=== PATIENT | male | born 1975 | race Caucasian/White ===

== ENCOUNTER 2016-08-18 14:32 | Emergency (ER) | payer MEDICARE, MEDICAID ==
[~2016-08-18] VITALS: Ht 170.2 cm; Wt 166.4 kg
[~2016-08-18 14:32] MED LIST: ADVA250A INH; BACT800T5 PO; DEPA500T3 PO; DIPH50TA PO; LEXA20TA PO; LORA10TA7 PO; OMEP20TA39 PO; PRIN10TA PO; SIMV20 PO; SPIRCAP INH; TRAZ100 PO; VENTAER INH
[2016-08-18 14:34] VITALS: BP 132/74; PULSE 112; RESP 24; TEMP 97.7; O2SAT 90
--- NOTE | 2016-08-18 16:09 | RADRPT ---
EXAM DATE/TIME: 08/18/2016 15:39 [place] COMPARISON: No previous studies available for comparison. INDICATIONS : Short of breath today, smoker MEDICAL HISTORY : Chronic obstructive pulmonary disease. SURGICAL HISTORY : None. ENCOUNTER: Initial ACUITY: 1 day PAIN SCORE: 0/10 LOCATION: Bilateral chest FINDINGS: PA and lateral views of the chest demonstrate the lungs to be symmetrically aerated without evidence of mass, infiltrate or effusion. The cardiomediastinal contours are unremarkable. Osseous structure s are intact. CONCLUSION: No acute disease. Yassine Laguna MD FACR on August 18, 2016 at 16:06 Board Certified Radiologist. This report was verified electronically.
[2016-08-18 16:39] LABS: AUTOMATED NEUTROPHIL # 9.6 TH/MM3 (1.8-7.7); BASOPHIL # 0.1 TH/MM3 (0-0.2); BASOPHIL % 0.5 % (0.0-2.0); EOSINOPHIL # 0.1 TH/MM3 (0-0.4); EOSINOPHIL % 0.5 % (0.0-4.0); HEMATOCRIT 44.3 % (39.0-51.0); LYMPH % 13.6 % (9.0-44.0); LYMPHOCYTE # 1.7 TH/MM3 (1.0-4.8); MEAN CELL VOLUME 71.3 FL (80.0-100.0); MEAN CORPUSCULAR HEMOGLOBIN 22.7 PG (27.0-34.0); MEAN CORPUSCULAR HGB CONC 31.9 % (32.0-36.0); MONO % 8.1 % (0.0-8.0); NEUT % 77.3 % (16.0-70.0); PLATELET COUNT 172 TH/MM3 (150-450); RED BLOOD COUNT 6.21 MIL/MM3 (4.50-5.90); RED CELL DISTRIBUTION WIDTH 19.4 % (11.6-17.2); WHITE BLOOD COUNT 12.4 TH/MM3 (4.0-11.0)
[2016-08-18 16:40] LABS: HEMO FLAGS AUTO DIFF
[2016-08-18 16:46] LABS: BICARBONATE 31.6 MEQ/L (21.0-32.0)
--- NOTE | 2016-08-18 17:07 | PD ---
HPI Chief Complaint: Respiratory Distress Time Seen by Provider: 17:07 Travel History International Travel<30 days: No Contact w/Intl Traveler<30days: No Traveled to known affect area: No History of Present Illness HPI 41-year-old male with a history of asthma, COPD, bipolar disorder, hypertension , hyperlipidemia presents to the emergency department for evaluation of shortness of breath. Patient states that for the past 3 days he's had increased wheezing and shortness of breath. States that she has also had a dry nonproductive cough. States that he is uses inhalers without improvement of symptoms. He denies any chest pain, lightheadedness, dizziness, nausea, vomiting, abdominal pain, swelling of the extremities. Patient states he feels as though he is having an exacerbation of his asthma. He does continue to smoke cigarettes. No recent travel or sick contacts. No other complaints. PFSH Past Medical History Arthritis: No Asthma: Yes Autoimmune Disease: No Blood Disorders: No Bipolar Disorder: Yes Depression: Yes Heart Rhythm Problems: No Cardiovascular Problems: No High Cholesterol: Yes Chest Pain: No Congestive Heart Failure: No COPD: Yes Cerebrovascular Accident: No Diabetes: No Diminished Hearing: No Endocrine: No Gastrointestinal Disorders: No GERD: No Glaucoma: No Genitourinary: Yes Headaches: No Hepatitis: No Hiatal Hernia: No Hypertension: Yes Immune Disorder: No Kidney Stones: Yes Musculoskeletal: No Neurologic: No Psychiatric: Yes (BIPOLAR) Reproductive: No Respiratory: Yes (SLEEP APNEA USING CPAP AT NIGHT) Migraines: No Myocardial Infarction: No Renal Failure: No Seizures: No Sickle Cell Disease: No Sleep Apnea: No Thyroid Disease: No Ulcer: Yes (GI) Past Surgical History Abdominal Surgery: No Appendectomy: No Cardiac Surgery: No Cholecystectomy: Yes (2010) Ear Surgery: No Endocrine Surgery: No Eye Surgery: No Genitourinary Surgery: No Gynecologic Surgery: No Neurologic Surgery: No Oral Surgery: No Thoracic Surgery: No Other Surgery: Yes (LEFT HAND TENDON REPAIR) Social History Alcohol Use: No Tobacco Use: Yes (1/2 PACK PER DAY) Substance Use: No Allergies-Medications (Allergen,Severity, Reaction): Coded Allergies: No Known Allergies (Verified , 04/26/16) Reported Meds & Prescriptions Reported Meds & Active Scripts Active Zithromax Z-Andrews (Azithromycin) 250 Mg Dspk 250 Mg PO DIRECTED 500 MG (2 tabs) day 1, then 1 tab days 2-5. Prednisone 20 Mg Tab 20 Mg PO BID 5 Days Bactrim Ds1 Tab 1 Tab Tab 1 Tab PO BID Diphenhydramine Hcl (Diphenhydramine HCl) 50 Mg Cap 50 Mg PO Q4-6H PRN Reported Hm Omeprazole (Omeprazole) 20 Mg Tab 20 Mg PO DAILY Spiriva Handihaler (Tiotropium [place]) 18 Mcg Cap 1 Dose INH DAILY DO NOT SWALLOW CAPSULES Trazodone HCl 100 Mg Tab 100 Mg PO HS Advair Disku1 250 Mcg/50 Mcg Inhp 1 Puff INH BID [id number] 18 Gm Aero 2 Puff INH Q6HPRN Zocor (Simvastatin) 20 Mg Tab 20 Mg PO HS Prinivil (Lisinopril) 10 Mg Tab 20 Mg PO DAILY Lexapro (Escitalopram Oxalate) 20 Mg Tab 20 Mg PO DAILY Claritin (Loratadine) 10 Mg Tab 10 Mg PO DAILY Depakote ER 500 mg (Divalproex Sodium) 500 Mg Carole 500 Mg PO BID Review of Systems Except as stated in HPI: all other systems reviewed are Neg Physical Exam Narrative GENERAL: Obese male patient in no acute distress who is nontoxic appearing. SKIN: Warm and dry. HEAD: Normocephalic and atraumatic. EYES: No injection, drainage, or hyphema noted. PERRLA. EOMI. ENT: No nasal drainage noted. Oropharynx is clear. NECK: Supple and the trachea is midline. CARDIOVASCULAR: Regular rate and rhythm. RESPIRATORY: Mild wheezing throughout all lung cruz. No accessory muscle use , rhonchi, or crackles. Patient speaking in full sentences without difficulty. GASTROINTESTINAL: Abdomen is soft, non-tender, and nondistended. MUSCULOSKELETAL: No obvious deformities, swelling, cyanosis, or ecchymosis is present throughout the upper and lower extremities. Patient has full range of motion without any signs of neurovascular compromise. NEUROLOGICAL: Awake, alert, and oriented. Normal speech and gait. Cranial nerves are grossly intact. Data Data Last Documented VS Vital Signs Date Time Temp Pulse Resp B/P Pulse Ox O2 Delivery O2 Flow Rate FiO2 08/18/16 17:56 102 20 130/74 95 08/18/16 14:34 97.7 Room Air Orders Complete Blood Count With Diff (08/18/16 14:46) Basic Metabolic Panel (Bmp) (08/18/16 14:46) Chest, Pa & Lat (08/18/16 14:46) Electrocardiogram (08/18/16 14:46) Methylprednisolone So Succ Inj (Solumedr (08/18/16 17:15) Albuterol-Ipratropium Neb (Duoneb Neb) (08/18/16 17:15) Labs Laboratory Tests Test 08/18/16 16:00 White Blood Count 12.4 TH/MM3 Red Blood Count 6.21 MIL/MM3 Hemoglobin 14.1 GM/DL Hematocrit 44.3 % Mean Corpuscular Volume 71.3 FL Mean Corpuscular Hemoglobin 22.7 PG Mean Corpuscular Hemoglobin 31.9 % Concent Red Cell Distribution Width 19.4 % Platelet Count 172 TH/MM3 Mean Platelet Volume 8.8 FL Neutrophils (%) (Auto) 77.3 % Lymphocytes (%) (Auto) 13.6 % Monocytes (%) (Auto) 8.1 % Eosinophils (%) (Auto) 0.5 % Basophils (%) (Auto) 0.5 % Neutrophils # (Auto) 9.6 TH/MM3 Lymphocytes # (Auto) 1.7 TH/MM3 Monocytes # (Auto) 1.0 TH/MM3 Eosinophils # (Auto) 0.1 TH/MM3 Basophils # (Auto) 0.1 TH/MM3 CBC Comment AUTO DIFF Differential Comment AUTO DIFF CONFIRMED Platelet Estimate NORMAL Platelet Morphology Comment NORMAL Sodium Level 145 MEQ/L Potassium Level 4.0 MEQ/L Chloride Level 107 MEQ/L Carbon Dioxide Level 31.6 MEQ/L Anion Gap 6 MEQ/L Blood Urea Nitrogen 12 MG/DL Creatinine 1.00 MG/DL Estimat Glomerular Filtration 82 ML/MIN Rate Random Glucose 67 MG/DL Calcium Level 8.5 MG/DL [facility] Medical Decision Making Medical Screen Exam Complete: Yes Emergency Medical Condition: Yes Differential Diagnosis Asthma exacerbation versus COPD exacerbation versus bronchitis versus pneumonia Narrative Course 41-year-old male presents to the emergency department for evaluation of wheezing , shortness of breath and cough for 3 days. Patient is afebrile. Patient is a little tachycardic with a heart rate of 112 bpm, oxygen saturation is decreased at 90% on room air. IV access is obtained, labs of been drawn and sent. EKG shows sinus tachycardia with no acute ST elevations or depressions. CBC shows slightly elevated white blood cell count of 12.4, otherwise unremarkable. BMP is unremarkable. Chest x-ray is negative for any acute abnormalities. Patient is administered Solu-Medrol 125 mg IV and DuoNeb 3. Reassessed after these medications and reports great improvement of symptoms. Lungs are now clear to auscultation. Oxygen saturation is 95% on room air. Patient will be discharged with prednisone and Z-andrews. Patient verbalizes understanding and agreement with treatment plan. Diagnosis Primary Impression: COPD exacerbation Referrals: Primary Care Physician Patient Instructions: COPD (Chronic Obstructive Pulmonary Disease) (ED), General Instructions Additional Instructions: Stop smoking. Use nebulizers every 4 hours. Take medications as prescribed with food and a full glass of water. Follow-up with your Primary Care Physician. Return to the ED for any acute worsening of symptoms. Med/Other Pt SpecificInfo: Prescription(s) given Scripts Azithromycin (Zithromax Z-Anderws)250 Mg [id number] Mg PO DIRECTED #1 DSPK Ref 0 500 MG (2 tabs) day 1, then 1 tab days 2-5. Prov:Johanny Michael MD 08/18/16 Prednisone 20 Mg Tab20 Mg PO BID 5 Days Ref 0 Prov:Johanny Michael MD 08/18/16 Disposition: 01 DISCHARGE HOME Condition: Stable Chrissy Benito Aug 18, 2016 17:07
[2016-08-18 17:13] LABS: PLATELET ESTIMATE SMEAR NORMAL (NORMAL); PLATELET MORPHOLOGY NORMAL (NORMAL); SCAN/DIFF AUTO DIFF CONFIRMED
[2016-08-18] MEDS ORDERED: methylPREDNISolone SOD SUCC 125 MG/2 ML VIAL IVP ONE (17:15)
[2016-08-18] MEDS: RESP: ALBUTEROL 2.5 MG/IPRATROPIUM 0.5 MG NEB (SCH) INH (17:22)
[2016-08-18] MEDS ORDERED: PRED20 PO (17:55)
[2016-08-18] MEDS ORDERED: ZITHTAB PO (17:55)
[2016-08-18 17:56] VITALS: BP 130/74
--- NOTE | 2016-08-19 17:19 | EKG ---
Date Performed: 08/18/2016 Time Performed: 15:45:42 PTAGE: 41 years EKG: SINUS TACHYCARDIA NONSPECIFIC T-WAVE ABNORMALITY Since previous tracing, no significant [place] nge noted ABNORMAL RHYTHM ECG PREVIOUS TRACING : 02/22/2016 09.13 DOCTOR: Jaskaran Smith Interpretating Date/Time 08/19/2016 17:18:51
== END 2016-08-18 17:56 | disposition home or self-care (01) ==
LOC: NETRI 14:32
DX: J44.1 Chronic obstructive pulmonary disease with (acute) exacerbation (principal); R00.0 Tachycardia, unspecified; R94.31 Abnormal electrocardiogram [ECG] [EKG]; I10 Essential (primary) hypertension; E78.5 Hyperlipidemia, unspecified; E78.00 Pure hypercholesterolemia, unspecified; G47.30 Sleep apnea, unspecified; F17.200 Nicotine dependence, unspecified, uncomplicated; Z87.09 Personal history of other diseases of the respiratory system; Z86.59 Personal history of other mental and behavioral disorders; Z87.448 Personal history of other diseases of urinary system; Z87.442 Personal history of urinary calculi; Z87.19 Personal history of other diseases of the digestive system
CPT/HCPCS: 71020; 80048; 85025; 93005; 94640; 94664; 96374; 99284; J2930

== ENCOUNTER 2016-12-16 19:28 | Emergency (ER) | payer MEDICARE, MEDICAID ==
[~2016-12-16] VITALS: Ht 167.6 cm; Wt 160.0 kg
[~2016-12-16 19:28] MED LIST changes: +PRED20 PO; +ZITHTAB PO
[2016-12-16 19:31] VITALS: BP 167/77; PULSE 81; RESP 18; TEMP 98.4; O2SAT 96
--- NOTE | 2016-12-16 20:21 | PD ---
HPI Chief Complaint: ENT Complaint Time Seen by Provider: 20:07 Travel History International Travel<30 days: No Contact w/Intl Traveler<30days: No Traveled to known affect area: No History of Present Illness HPI 41-year-old white male presents to emergency Department with complaints of decreased hearing and pain in his left ear over last several days. He denies any Q-tips. He has not been sick recently. He has had no fever or chills. No runny nose, cough or congestion. PFSH Past Medical History Narrative Medical Left leg DVT, bipolar, hypertension, COPD, hypercholesterolemia, GERD Hx Anticoagulant Therapy: Yes Arthritis: No Asthma: Yes Autoimmune Disease: No Blood Disorders: No Bipolar Disorder: Yes Depression: Yes Heart Rhythm Problems: No Cardiovascular Problems: No High Cholesterol: Yes Chest Pain: No Congestive Heart Failure: No COPD: Yes Cerebrovascular Accident: No Diabetes: No Diminished Hearing: No Endocrine: No Gastrointestinal Disorders: No GERD: No Glaucoma: No Genitourinary: Yes Headaches: No Hepatitis: No Hiatal Hernia: No Hypertension: Yes Immune Disorder: No Kidney Stones: Yes Musculoskeletal: No Neurologic: No Psychiatric: Yes (BIPOLAR) Reproductive: No Respiratory: Yes (SLEEP APNEA USING CPAP AT NIGHT) Migraines: No Myocardial Infarction: No Renal Failure: No Seizures: No Sickle Cell Disease: No Sleep Apnea: No Thyroid Disease: No Ulcer: Yes (GI) Tetanus Vaccination: Unknown Past Surgical History Narrative Surgical Left wrist surgery, cholecystectomy Abdominal Surgery: No Appendectomy: No Cardiac Surgery: No Cholecystectomy: Yes (2010) Ear Surgery: No Endocrine Surgery: No Eye Surgery: No Genitourinary Surgery: No Gynecologic Surgery: No Neurologic Surgery: No Oral Surgery: No Thoracic Surgery: No Other Surgery: Yes (LEFT HAND TENDON REPAIR) Social History Alcohol Use: No Tobacco Use: Yes Substance Use: No Allergies-Medications (Allergen,Severity, Reaction): Coded Allergies: No Known Allergies (Verified , 04/26/16) Reported Meds & Prescriptions Reported Meds & Active Scripts Active Zithromax Z-Andrews (Azithromycin) 250 Mg Dspk 250 Mg PO DIRECTED 500 MG (2 tabs) day 1, then 1 tab days 2-5. Prednisone 20 Mg Tab 20 Mg PO BID 5 Days Bactrim Ds1 Tab 1 Tab Tab 1 Tab PO BID Diphenhydramine Hcl (Diphenhydramine HCl) 50 Mg Cap 50 Mg PO Q4-6H PRN Reported Hm Omeprazole (Omeprazole) 20 Mg Tab 20 Mg PO DAILY Spiriva Handihaler (Tiotropium [place]) 18 Mcg Cap 1 Dose INH DAILY DO NOT SWALLOW CAPSULES Trazodone HCl 100 Mg Tab 100 Mg PO HS Advair Disku1 250 Mcg/50 Mcg Inhp 1 Puff INH BID [id number] 18 Gm Aero 2 Puff INH Q6HPRN Zocor (Simvastatin) 20 Mg Tab 20 Mg PO HS Prinivil (Lisinopril) 10 Mg Tab 20 Mg PO DAILY Lexapro (Escitalopram Oxalate) 20 Mg Tab 20 Mg PO DAILY Claritin (Loratadine) 10 Mg Tab 10 Mg PO DAILY Depakote ER 500 mg (Divalproex Sodium) 500 Mg Carole 500 Mg PO BID Review of Systems Except as stated in HPI: all other systems reviewed are Neg Physical Exam Narrative GENERAL: Well-developed, morbidly obese in no acute distress. Nontoxic appearing. HEAD: Normocephalic, atraumatic. EYES: Pupils equal round and reactive. Extraocular motions intact. No scleral icterus. No injection or drainage. Strabismus ENT: The right TMs clear without erythema. The right external auditory is partially obstructed but I can see the TM. The left external auditory canals completely obstructed with cerumen.. Nose: clear . Posterior pharynx is pink and moist. No tonsillar edema or exudate. Uvula midline. Airway patent. NECK: Trachea midline.Supple, nontender, moves head freely. No central bony tenderness or spasm. CARDIOVASCULAR: Regular rate and rhythm without murmurs, gallops, or rubs. RESPIRATORY: Decreased breath sounds with few fine expiratory wheeze. GASTROINTESTINAL: Abdomen soft, non-tender, nondistended. No hepato-splenomegaly , or palpable masses. No guarding. EXTREMITIES: No clubbing, cyanosis, or edema. No joint tenderness, effusion, or edema noted. BACK: Nontender without deformity or crepitance. No flank tenderness. Data Data Last Documented VS Vital Signs Date Time Temp Pulse Resp B/P Pulse Ox O2 Delivery O2 Flow Rate FiO2 12/16/16 19:31 98.4 81 18 167/77 96 MDM Medical Decision Making Medical Screen Exam Complete: Yes Emergency Medical Condition: Yes Medical Record Reviewed: Yes Differential Diagnosis Differential diagnoses: Otitis media, otitis externa, mastoiditis, cerumen impaction Narrative Course Patient's ears are irrigated by the nursing staff. This is cerumen impaction, left otitis media Procedures Procedure Narrative Bilateral ear irrigation: The patient's ears are irrigated using saline and hydrogen peroxide 50-50. The ears are irrigated clear. Large amount of cerumen is removed. The TMs are reevaluated after removal of the wax. TMs are intact. The left TM is erythematous and distended. Diagnosis Primary Impression: Left otitis media Additional Impression: Impacted cerumen of both ears Patient Instructions: General Instructions Additional Instructions: Rest. Increase fluids. Amoxicillin and Ciprodex. Tylenol for pain. Follow-up with your medical doctor within one week. Return to the ER if any problems. Med/Other Pt SpecificInfo: Prescription(s) given Scripts Ciprofloxacin-Dexamethasone Otic Drops (Ciprodex Otic Drops)0.3-0.1% Susp4 Drop EACH EAR BID #1 BOTTLE Prov:Johanny Michael MD 12/16/16 Amoxicillin 500 Mg Tab1,000 Mg PO BID #40 TAB Prov:Johanny Michael MD 12/16/16 Disposition: 01 DISCHARGE HOME Condition: Stable Willian Villarreal Dec 16, 2016 20:21
[2016-12-16] MEDS ORDERED: AMOX500T PO (20:37)
[2016-12-16] MEDS ORDERED: CIPR0.3S EACH EAR (20:37)
== END 2016-12-16 20:51 | disposition home or self-care (01) ==
LOC: NEPK 19:28
DX: H66.92 Otitis media, unspecified, left ear (principal); H61.23 Impacted cerumen, bilateral; I10 Essential (primary) hypertension; E78.00 Pure hypercholesterolemia, unspecified; Z72.0 Tobacco use; Z86.718 Personal history of other venous thrombosis and embolism; Z86.59 Personal history of other mental and behavioral disorders; Z87.09 Personal history of other diseases of the respiratory system; Z87.19 Personal history of other diseases of the digestive system; Z87.448 Personal history of other diseases of urinary system
CPT/HCPCS: 99284

== ENCOUNTER 2017-03-12 14:14 | Emergency (ER) | payer MEDICARE, MEDICAID ==
[~2017-03-12] VITALS: Ht 165.1 cm; Wt 170.0 kg
[~2017-03-12 14:14] MED LIST changes: +AMOX500T PO; +CIPR0.3S EACH EAR
[2017-03-12 14:16] VITALS: BP 164/92; PULSE 100; RESP 24; TEMP 98.3; O2SAT 97
--- NOTE | 2017-03-12 14:19 | PD ---
Physical Exam Time Seen by Provider: 14:17 Narrative 41yo M c/o R flank pain x 1 week. Denies hematuria, dysuria. Hx kidney stones. Denies vomiting, diarrhea. Reports subjective fever earlier today. Patient seen in triage. VS reviewed. Awaiting bed placement. Data Data Last Documented VS Vital Signs Date Time Temp Pulse Resp B/P (MAP) Pulse Ox O2 Delivery O2 Flow Rate FiO2 03/12/17 14:16 98.3 100 24 164/92 (116) 97 Room Air [facility] Supervised Visit with OLESYA: Chrissy Walker Mar 12, 2017 14:18
[2017-03-12] MEDS ORDERED: SODIUM CHLOR 0.9% 1000 ML INJ 1,000 ML IV SCH (14:28)
[2017-03-12] MEDS ORDERED: MORPHINE SULFATE 4 MG/ML INJ IV PUSH ONE (14:30)
[2017-03-12] MEDS ORDERED: ONDANSETRON HCL 4 MG/2 ML VIAL IVP ONE (14:30)
[2017-03-12] MEDS ORDERED: SODIUM CHLORIDE 0.9% FLUSH 10 ML FLUSH IV FLUSH PRN (14:30)
[2017-03-12 14:38] VITALS: BP 133/67; PULSE 93; RESP 14; TEMP 98.1; O2SAT 94
--- NOTE | 2017-03-12 14:38 | PD ---
HPI Chief Complaint: Flank/Kidney Pain Time Seen by Provider: 14:24 Travel History International Travel<30 days: No Contact w/Intl Traveler<30days: No Traveled to known affect area: No History of Present Illness HPI Patient is a 41 year old male who presents to emergency room complaints of right -sided flank pain. Patient reports that he has had persistent right-sided flank pain for the past week, reports that flank pain is nonradiating in nature. Patient reports that he does have history of kidney stones in the past , denies hematuria, denies dysuria, denies urinary urgency or frequency. Patient with no fevers or chills, reports that he did feel nauseous today, no vomiting. Denies any chest pain/sob. PFSH Past Medical History Hx Anticoagulant Therapy: Yes (xarelto) Arthritis: No Asthma: Yes Autoimmune Disease: No Blood Disorders: No Bipolar Disorder: Yes Depression: Yes Heart Rhythm Problems: No Cardiovascular Problems: No High Cholesterol: Yes Chest Pain: No Congestive Heart Failure: No COPD: Yes Cerebrovascular Accident: No Diabetes: No Diminished Hearing: No Deep Vein Thrombosis: Yes (RLE) Endocrine: No Gastrointestinal Disorders: No GERD: No Glaucoma: No Genitourinary: Yes Headaches: No Hepatitis: No Hiatal Hernia: No Hypertension: Yes Immune Disorder: No Kidney Stones: Yes Musculoskeletal: No Neurologic: No Psychiatric: Yes (BIPOLAR) Reproductive: No Respiratory: Yes (SLEEP APNEA USING CPAP AT NIGHT) Migraines: No Myocardial Infarction: No Renal Failure: No Seizures: No Sickle Cell Disease: No Sleep Apnea: Yes Thyroid Disease: No Ulcer: Yes (GI) Tetanus Vaccination: < 5 Years Influenza Vaccination: No Past Surgical History Abdominal Surgery: No Appendectomy: No Cardiac Surgery: No Cholecystectomy: Yes (2010) Ear Surgery: No Endocrine Surgery: No Eye Surgery: Yes Genitourinary Surgery: No Gynecologic Surgery: No Neurologic Surgery: No Oral Surgery: No Thoracic Surgery: No Other Surgery: Yes (LEFT HAND TENDON REPAIR) Social History Alcohol Use: No Tobacco Use: Yes (1/2ppd) Substance Use: No Allergies-Medications (Allergen,Severity, Reaction): Coded Allergies: No Known Allergies (Verified , 03/12/17) Reported Meds & Prescriptions Reported Meds & Active Scripts Active Ciprodex Otic Drops (Ciprofloxacin-Dexamethasone Otic Drops) 0.3-0.1% Susp 4 Drop EACH EAR BID Amoxicillin 500 Mg Tab 1,000 Mg PO BID Zithromax Z-Andrews (Azithromycin) 250 Mg Dspk 250 Mg PO DIRECTED 500 MG (2 tabs) day 1, then 1 tab days 2-5. Prednisone 20 Mg Tab 20 Mg PO BID 5 Days Bactrim DS (Sulfamethoxazole-Trimethoprim DS) 1 Tab Tab 1 Tab PO BID Diphenhydramine Hcl (Diphenhydramine HCl) 50 Mg Cap 50 Mg PO Q4-6H PRN Reported Hm Omeprazole (Omeprazole) 20 Mg Tab 20 Mg PO DAILY Spiriva Handihaler (Tiotropium [place]) 18 Mcg Cap 1 Dose INH DAILY DO NOT SWALLOW CAPSULES Trazodone HCl 100 Mg Tab 100 Mg PO HS Advair Diskus 250/50 (Salmeterol Xinafoate/Fluticasone) 250 Mcg/50 Mcg Inhp 1 Puff INH BID Ventolin Hfa (Albuterol Sulfate) 18 Gm Aero 2 Puff INH Q6HPRN Zocor (Simvastatin) 20 Mg Tab 20 Mg PO HS Prinivil (Lisinopril) 10 Mg Tab 20 Mg PO DAILY Lexapro (Escitalopram Oxalate) 20 Mg Tab 20 Mg PO DAILY Claritin (Loratadine) 10 Mg Tab 10 Mg PO DAILY Depakote ER 500 mg (Divalproex Sodium) 500 Mg Carole 500 Mg PO BID Review of Systems General / Constitutional: No: Fever Eyes: No: Visual changes HENT: No: Headaches Cardiovascular: No: Chest Pain or Discomfort Respiratory: No: Shortness of Breath Gastrointestinal: Positive: Nausea, No: Vomiting, Diarrhea, Abdominal Pain Genitourinary: Positive: Flank Pain, No: Urgency, Frequency, Dysuria, Hematuria Musculoskeletal: No: Pain Skin: No Rash Neurologic: No: Weakness Psychiatric: No: Depression Endocrine: No: Polydipsia Hematologic/Lymphatic: No: Easy Bruising Physical Exam Narrative GENERAL: Mild distress SKIN: Focused skin assessment warm/dry. HEAD: Atraumatic. Normocephalic. EYES: Pupils equal and round. No scleral icterus. No injection or drainage. ENT: No nasal bleeding or discharge. Mucous membranes pink and moist. NECK: Trachea midline. No JVD. CARDIOVASCULAR: Regular rate and rhythm. No murmur appreciated. RESPIRATORY: No accessory muscle use. Clear to auscultation. Breath sounds equal bilaterally. GASTROINTESTINAL: Abdomen soft, non-tender, nondistended. Hepatic and splenic margins not palpable. Right sided flank pain MUSCULOSKELETAL: No obvious deformities. No clubbing. No cyanosis. No edema. NEUROLOGICAL: Awake and alert. No obvious cranial nerve deficits. Motor grossly within normal limits. Normal speech. PSYCHIATRIC: Appropriate mood and affect; insight and judgment normal. Data Data Last Documented VS Vital Signs Date Time Temp Pulse Resp B/P (MAP) Pulse Ox O2 Delivery O2 Flow Rate FiO2 03/12/17 15:46 16 03/12/17 14:38 98.1 93 133/67 (89) 94 Room Air Orders Orders Complete Blood Count With Diff (03/12/17 14:28) Comprehensive Metabolic Panel (03/12/17 14:28) Prothrombin Time / Inr (Pt) (03/12/17 14:28) Act Partial Throm Time (Ptt) (03/12/17 14:28) Urinalysis - C+S If Indicated (03/12/17 14:28) Ct Abd/Pel W/O Iv Contrast (03/12/17 14:28) Iv Access Insert/Monitor (03/12/17 14:28) Ecg Monitoring (03/12/17 14:28) NPO (03/12/17 14:28) Morphine Inj (Morphine Inj) (03/12/17 14:30) Ondansetron Inj (Zofran Inj) (03/12/17 14:30) Sodium Chlor 0.9% 1000 Ml Inj (Ns 1000 M (03/12/17 14:28) Sodium Chloride 0.9% Flush (Ns Flush) (03/12/17 14:30) Ketorolac Inj (Toradol Inj) (03/12/17 16:00) Labs Laboratory Tests Test 03/12/17 14:35 03/12/17 15:10 White Blood Count 10.7 TH/MM3 Red Blood Count 7.00 MIL/MM3 Hemoglobin 16.3 GM/DL Hematocrit 51.8 % Mean Corpuscular Volume 74.1 FL Mean Corpuscular Hemoglobin 23.4 PG Mean Corpuscular Hemoglobin Concent 31.5 % Red Cell Distribution Width 18.2 % Platelet Count 317 TH/MM3 Mean Platelet Volume 8.0 FL Neutrophils (%) (Auto) 59.3 % Lymphocytes (%) (Auto) 30.1 % Monocytes (%) (Auto) 8.3 % Eosinophils (%) (Auto) 1.2 % Basophils (%) (Auto) 1.1 % Neutrophils # (Auto) 6.4 TH/MM3 Lymphocytes # (Auto) 3.2 TH/MM3 Monocytes # (Auto) 0.9 TH/MM3 Eosinophils # (Auto) 0.1 TH/MM3 Basophils # (Auto) 0.1 TH/MM3 CBC Comment DIFF FINAL Differential Comment Prothrombin Time 12.2 SEC Prothromb Time International Ratio 1.1 RATIO Activated Partial Thromboplast Time 32.0 SEC Blood Urea Nitrogen 15 MG/DL Creatinine 0.97 MG/DL Random Glucose 94 MG/DL Total Protein 8.0 GM/DL Albumin 3.4 GM/DL Calcium Level 9.0 MG/DL Alkaline Phosphatase 103 U/L Aspartate Amino Transf (AST/SGOT) 17 U/L Alanine Aminotransferase (ALT/SGPT) 21 U/L Total Bilirubin 0.6 MG/DL Sodium Level 139 MEQ/L Potassium Level 4.1 MEQ/L Chloride Level 104 MEQ/L Carbon Dioxide Level 28.8 MEQ/L Anion Gap 6 MEQ/L Estimat Glomerular Filtration Rate 85 ML/MIN Urine Color YELLOW Urine Turbidity CLEAR Urine pH 5.5 Urine Specific Anderson 1.027 Urine Protein TRACE mg/dL Urine Glucose (UA) NEG mg/dL Urine Ketones NEG mg/dL Urine Occult Blood NEG Urine Nitrite NEG Urine Bilirubin NEG Urine Urobilinogen LESS THAN 2.0 MG/DL Urine Leukocyte Esterase NEG Urine RBC LESS THAN 1 /hpf Urine WBC 1 /hpf Urine Squamous Epithelial Cells <1 /hpf Urine Mucus FEW /lpf Microscopic Urinalysis Comment CULT NOT INDICATED MDM Medical Decision Making Medical Screen Exam Complete: Yes Emergency Medical Condition: Yes Interpretation(s) Vital Signs Date Time Temp Pulse Resp B/P (MAP) Pulse Ox O2 Delivery O2 Flow Rate FiO2 03/12/17 14:25 20 03/12/17 14:16 98.3 100 24 164/92 (116) 97 Room Air Differential Diagnosis Differential includes pyelonephritis, kidney stones, muscle skeletal pain, electrolyte abnormality, appendicitis Narrative Course Patient is a 41-year-old male who presents to emergency with complaints of right -sided flank pain. Flank has been ongoing for the past week. Patient denies any hematuria, urinary urgency or frequency. Plan to obtain lab work, ua, ct of abdomen and pelvis for evaluation of kidney stone Vital Signs Date Time Temp Pulse Resp B/P (MAP) Pulse Ox O2 Delivery O2 Flow Rate FiO2 03/12/17 15:46 16 03/12/17 14:38 98.1 93 14 133/67 (89) 94 Room Air 03/12/17 14:25 20 03/12/17 14:16 98.3 100 24 164/92 (116) 97 Room Air Laboratory Tests Test 03/12/17 14:35 03/12/17 15:10 White Blood Count 10.7 TH/MM3 (4.0-11.0) Red Blood Count 7.00 MIL/MM3 (4.50-5.90) Hemoglobin 16.3 GM/DL (13.0-17.0) Hematocrit 51.8 % (39.0-51.0) Mean Corpuscular Volume 74.1 FL (80.0-100.0) Mean Corpuscular Hemoglobin 23.4 PG (27.0-34.0) Mean Corpuscular Hemoglobin Concent 31.5 % (32.0-36.0) Red Cell Distribution Width 18.2 % (11.6-17.2) Platelet Count 317 TH/MM3 (150-450) Mean Platelet Volume 8.0 FL (7.0-11.0) Neutrophils (%) (Auto) 59.3 % (16.0-70.0) Lymphocytes (%) (Auto) 30.1 % (9.0-44.0) Monocytes (%) (Auto) 8.3 % (0.0-8.0) Eosinophils (%) (Auto) 1.2 % (0.0-4.0) Basophils (%) (Auto) 1.1 % (0.0-2.0) Neutrophils # (Auto) 6.4 TH/MM3 (1.8-7.7) Lymphocytes # (Auto) 3.2 TH/MM3 (1.0-4.8) Monocytes # (Auto) 0.9 TH/MM3 (0-0.9) Eosinophils # (Auto) 0.1 TH/MM3 (0-0.4) Basophils # (Auto) 0.1 TH/MM3 (0-0.2) CBC Comment DIFF FINAL Differential Comment Prothrombin Time 12.2 SEC (9.8-11.6) Prothromb Time International Ratio 1.1 RATIO Activated Partial Thromboplast Time 32.0 SEC (24.3-30.1) Blood Urea Nitrogen 15 MG/DL (7-18) Creatinine 0.97 MG/DL (0.60-1.30) Random Glucose 94 MG/DL (74-106) Total Protein 8.0 GM/DL (6.4-8.2) Albumin 3.4 GM/DL (3.4-5.0) Calcium Level 9.0 MG/DL (8.5-10.1) Alkaline Phosphatase 103 U/L (45-117) Aspartate Amino Transf (AST/SGOT) 17 U/L (15-37) Alanine Aminotransferase (ALT/SGPT) 21 U/L (12-78) Total Bilirubin 0.6 MG/DL (0.2-1.0) Sodium Level 139 MEQ/L (136-145) Potassium Level 4.1 MEQ/L (3.5-5.1) Chloride Level 104 MEQ/L (98-107) Carbon Dioxide Level 28.8 MEQ/L (21.0-32.0) Anion Gap 6 MEQ/L (5-15) Estimat Glomerular Filtration Rate 85 ML/MIN (>89) Urine Color YELLOW (YELLW/STRAW) Urine Turbidity CLEAR (CLEAR) Urine pH 5.5 (5.0-8.5) Urine Specific Anderson 1.027 (1.002-1.035) Urine Protein TRACE mg/dL (NEG-TRACE) Urine Glucose (UA) NEG mg/dL (NEG) Urine Ketones NEG mg/dL (NEG) Urine Occult Blood NEG (NEG) Urine Nitrite NEG (NEG) Urine Bilirubin NEG (NEG) Urine Urobilinogen LESS THAN 2.0 MG/DL (LESS Urine Leukocyte Esterase NEG (NEG) Urine RBC LESS THAN 1 /hpf (0-3) Urine WBC 1 /hpf (0-5) Urine Squamous Epithelial Cells <1 /hpf (0-5) Urine Mucus FEW /lpf (OCC) Microscopic Urinalysis Comment CULT NOT INDICATED Last Impressions Abdomen/Pelvis CT 03/12/17 [id number] Signed Impressions: Service Date/Time: February 14:44 - CONCLUSION: 1. Anterior abdominal wall hernia containing mesenteric fat. 2. Status post cholecystectomy. 3. The kidneys are unremarkable in appearance with no renal calculi or obstruction. Mario Patel MD Patient reevaluated, patient feeling much better this time. Reviewed all labs and all studies with patient in detail including all incidental findings. Patient with most likely muscle strain. Plan to treat with NSAIDs and muscle relaxors. Patient will follow up with his pcp and will return to ER as needed Diagnosis Primary Impression: Right flank pain Additional Impressions: Muscle strain Hernia of anterior abdominal wall Patient Instructions: General Instructions, Moderate Sedation in Children (ED) Additional Instructions: Please follow-up with your primary care doctor Return to the emergency room if symptoms worsen or progress Return to the emergency room as needed Please do not drive while taking muscle relaxers Med/Other Pt SpecificInfo: Prescription(s) given Scripts Diazepam (Valium) 5 Mg Tab 5 MG PO BID Y for SPASM, #12 TAB 0 Refills Prov: Jeanie Alfredo DO 03/12/17 Disposition: 01 DISCHARGE HOME Condition: Stable Jeanie Alfredo DO Mar 12, 2017 14:38
[2017-03-12 14:57] LABS: AUTOMATED NEUTROPHIL # 6.4 TH/MM3 (1.8-7.7); BASOPHIL # 0.1 TH/MM3 (0-0.2); BASOPHIL % 1.1 % (0.0-2.0); EOSINOPHIL # 0.1 TH/MM3 (0-0.4); EOSINOPHIL % 1.2 % (0.0-4.0); HEMATOCRIT 51.8 % (39.0-51.0); HEMO FLAGS DIFF FINAL; LYMPH % 30.1 % (9.0-44.0); LYMPHOCYTE # 3.2 TH/MM3 (1.0-4.8); MEAN CELL VOLUME 74.1 FL (80.0-100.0); MEAN CORPUSCULAR HEMOGLOBIN 23.4 PG (27.0-34.0); MEAN CORPUSCULAR HGB CONC 31.5 % (32.0-36.0); MONO % 8.3 % (0.0-8.0); NEUT % 59.3 % (16.0-70.0); PLATELET COUNT 317 TH/MM3 (150-450); RED CELL DISTRIBUTION WIDTH 18.2 % (11.6-17.2); WHITE BLOOD COUNT 10.7 TH/MM3 (4.0-11.0)
[2017-03-12 15:07] LABS: INTERNATIONAL NORMALIZED RATIO 1.1 RATIO; PROTHROMBIN TIME - PATIENT 12.2 SEC (9.8-11.6)
--- NOTE | 2017-03-12 15:11 | RADRPT ---
EXAM DATE/TIME: 03/12/2017 14:44 [facility] COMPARISON: No previous studies available for comparison. INDICATIONS : Right flank pain. ORAL CONTRAST: No oral contrast ingested. RADIATION DOSE: 33.87 CTDIvol (mGy) MEDICAL HISTORY : Renal calculi. Ulcers. Hypertension. SURGICAL HISTORY : Cholecystectomy. ENCOUNTER: Initial ACUITY: 1 week PAIN SCALE: 7/10 LOCATION: Right flank TECHNIQUE: Volumetric scanning of the abdomen and pelvis was performed. Using automated exposure control and ad justment of the mA and/or kV according to patient size, radiation dose was kept as low as reasonably achievable to obtain optimal diagnostic quality images. DICOM format image data is available electro nically for review and comparison. FINDINGS: LOWER LUNGS: The visualized lower lungs are clear. LIVER: Homogeneous density without lesion. There is no dilation of the biliary tree. Status post cholecyste ctomy. SPLEEN: Normal size without lesion. PANCREAS: Within normal limits. KIDNEYS: Normal in size and shape. There is no mass, stone, or hydronephrosis. ADRENAL GLANDS: Within normal limits. VASCULAR: There is no aortic aneurysm. BOWEL/MESENTERY: The stomach, small bowel, and colon demonstrate no acute abnormality. There is no free intraperitone al air or fluid. ABDOMINAL WALL: There is an anterior abdominal wall hernia with mesenteric fat extending into the subcutaneous fat. T he opening of the hernia measures approximately 2-3 cm in size there is no bowel within the hernia. RETROPERITONEUM: There is no lymphadenopathy. BLADDER: No wall thickening or mass. REPRODUCTIVE: Within normal limits. INGUINAL: There is no lymphadenopathy or hernia. MUSCULOSKELETAL: Within normal limits for patient age. CONCLUSION: 1. Anterior abdominal wall hernia containing mesenteric fat. 2. Status post cholecystectomy. 3. The kidneys are unremarkable in appearance with no renal calculi or obstruction. Mario Patel MD on March 12, 2017 at 15:06 Board Certified Radiologist. This report was verified electronically.
[2017-03-12 15:25] LABS: ALKALINE PHOSPHATASE 103 U/L (45-117); ALT (GPT) 21 U/L (12-78); ANION GAP 6 MEQ/L (5-15); AST (GOT) 17 U/L (15-37); BICARBONATE 28.8 MEQ/L (21.0-32.0); CHLORIDE 104 MEQ/L (98-107); GLOMERULAR FILTRATION RATE 85 ML/MIN (>89); POTASSIUM 4.1 MEQ/L (3.5-5.1); SODIUM (NA) 139 MEQ/L (136-145); TOTAL BILIRUBIN ADULT 0.6 MG/DL (0.2-1.0)
[2017-03-12 15:32] LABS: BLOOD, URINE NEG (NEG); COMMENT (UR) CULT NOT INDICATED; CULTURE IF INDICATED CULT NOT INDICATED; GLUCOSE,URINE NEG (NEG); KETONE, URINE NEG (NEG); MUCUS URINE FEW /lpf (OCC); NITRITE,URINE NEG (NEG); PH, URINE 5.5 (5.0-8.5); SQUAMOUS EPITHELIAL CELL URINE <1 /hpf (0-5); URINE COLOR YELLOW (YELLW/STRAW)
[2017-03-12 15:42] LABS: BLOOD UREA NITROGEN 15 MG/DL (7-18)
[2017-03-12 15:46] VITALS: RESP 16
[2017-03-12] MEDS ORDERED: KETOROLAC TROMETHAMINE 30 MG/ML (IVP) VIAL IV PUSH ONE (16:00)
[2017-03-12] MEDS ORDERED: DIAZ5 PO (16:36)
== END 2017-03-12 17:02 | disposition home or self-care (01) ==
LOC: NEPC 14:14
DX: R10.31 Right lower quadrant pain (principal); S39.013A Strain of muscle, fascia and tendon of pelvis, initial encounter; K43.9 Ventral hernia without obstruction or gangrene; Z87.442 Personal history of urinary calculi; J44.9 Chronic obstructive pulmonary disease, unspecified; G47.33 Obstructive sleep apnea (adult) (pediatric); Z86.718 Personal history of other venous thrombosis and embolism; Z79.01 Long term (current) use of anticoagulants
CPT/HCPCS: 74176; 80053; 81001; 85025; 85610; 85730; 96361; 96374; 96375; 99285; J1885; J2270; J2405; J7030

== ENCOUNTER 2017-03-20 00:59 | Inpatient (IN) | payer MEDICARE, OTHER ==
[2017-03-20] VITALS (8 sets, daily range): BP systolic 118–166; BP diastolic 69–88; PULSE 75–92; RESP 18–20; TEMP 97.3–98.4; O2SAT 18–100
[~2017-03-20] VITALS: Ht 165.1 cm; Wt 170.4 kg
[~2017-03-20 00:59] MED LIST changes: +DIAZ5 PO
[2017-03-20] MEDS ORDERED: DIVA500T3 PO (01:32)
[2017-03-20] MEDS ORDERED: TRAZ100T6 PO (01:32)
[2017-03-20] MEDS ORDERED: VENTAER INH (01:32)
[2017-03-20] MEDS ORDERED: OMEP20TA PO (01:32)
[2017-03-20] MEDS ORDERED: SPIRCAP INH (01:32)
[2017-03-20] MEDS ORDERED: LORA-520 (01:32)
[2017-03-20] MEDS ORDERED: SIMV20TA PO (01:32)
[2017-03-20] MEDS ORDERED: XARE20TA PO (01:32)
[2017-03-20] MEDS ORDERED: LISI-515 PO (01:32)
[2017-03-20] MEDS ORDERED: ADVA250A INH (01:32)
[2017-03-20] MEDS ORDERED: ESCI20TA PO (01:32)
--- NOTE | 2017-03-20 02:51 | PD ---
HPI Chief Complaint: GI Complaint Time Seen by Provider: 02:51 Travel History International Travel<30 days: No Contact w/Intl Traveler<30days: No Traveled to known affect area: No History of Present Illness HPI 41-year-old male came to the emergency room with history of vomiting and diarrhea that started at 9 PM last night. Patient says he's had 6-7 episodes of vomiting and 7-8 episodes of diarrhea. He is also complaining of right lower quadrant pain. Last vomit was less than an hour ago. No blood in the stool or vomit. No recent past history of hospitalization or antibiotic course. No known sick contacts. Vital signs were within acceptable limits. Patient is morbidly obese and was brought in by EMS. [facility] Past Medical History Narrative Medical List of his past medical, surgical, social and family history was reviewed from the nursing note. Hx Anticoagulant Therapy: Yes (xarelto) Arthritis: No Asthma: Yes Autoimmune Disease: No Blood Disorders: No Bipolar Disorder: Yes Depression: Yes Heart Rhythm Problems: No Cardiovascular Problems: No High Cholesterol: Yes Chest Pain: No Congestive Heart Failure: No COPD: Yes Cerebrovascular Accident: No Diabetes: No Diminished Hearing: No Deep Vein Thrombosis: Yes (RLE) Endocrine: No Gastrointestinal Disorders: No GERD: No Glaucoma: No Genitourinary: Yes Headaches: No Hepatitis: No Hiatal Hernia: No Hypertension: Yes Immune Disorder: No Kidney Stones: Yes Musculoskeletal: No Neurologic: No Psychiatric: Yes (BIPOLAR) Reproductive: No Respiratory: Yes (SLEEP APNEA USING CPAP AT NIGHT) Migraines: No Myocardial Infarction: No Renal Failure: No Seizures: No Sickle Cell Disease: No Sleep Apnea: Yes (cpap at nite) Thyroid Disease: No Ulcer: Yes (GI) Past Surgical History Abdominal Surgery: No Appendectomy: No Cardiac Surgery: No Cholecystectomy: Yes (2010) Ear Surgery: No Endocrine Surgery: No Eye Surgery: Yes Genitourinary Surgery: No Gynecologic Surgery: No Neurologic Surgery: No Oral Surgery: No Thoracic Surgery: No Other Surgery: Yes (LEFT HAND TENDON REPAIR) Social History Alcohol Use: No Tobacco Use: Yes (1/2ppd) Substance Use: No Allergies-Medications (Allergen,Severity, Reaction): Coded Allergies: No Known Allergies (Verified , 03/20/17) Comments No known drug allergies. Reported Meds & Prescriptions Reported Meds & Active Scripts Active Reported Trazodone (Trazodone HCl) 100 Mg Tablet 100 Mg PO HS Spiriva Handihaler (Tiotropium Inh) 18 Mcg Cap 18 Mcg INH DAILY 1 capsule = 18 mcg Simvastatin 20 Mg Tab 20 Mg PO DAILY Advair Diskus Inh (Fluticasone-Salmeterol Inh) 250-50 Mcg/Blist Aer 1 Puff INH BID Rinse mouth after use. Ventolin Hfa 18 GM Inh (Albuterol Sulfate) 90 Mcg/Act Aer 2 Puff INH Q6H PRN Xarelto (Rivaroxaban) 20 Mg Tab 20 Mg PO DAILY Lisinopril 20 Mg Tab 20 Mg PO DAILY Escitalopram (Escitalopram Oxalate) 20 Mg Tab 30 Mg PO DAILY Divalproex ER (Divalproex Sodium) 500 Mg Tab 1,000 Mg PO BID Omeprazole 20 Mg Tab 20 Mg PO BID Allergy (Loratadine) 10 Mg Tab Narrative Medication List of his home medications reviewed from the nursing note. Review of Systems Except as stated in HPI: all other systems reviewed are Neg Physical Exam Narrative GENERAL: Awake, alert, morbidly obese, moderate distress SKIN: Focused skin assessment warm/dry. HEAD: Atraumatic. Normocephalic. EYES: Pupils equal and round. No scleral icterus. No injection or drainage. ENT: No nasal bleeding or discharge. Dry mucous membrane and coated tongue NECK: Trachea midline. No JVD. CARDIOVASCULAR: Regular rate and rhythm. No murmur appreciated. RESPIRATORY: No accessory muscle use. Clear to auscultation. Breath sounds equal bilaterally. GASTROINTESTINAL: Abdomen soft, non-tender, nondistended. Hepatic and splenic margins not palpable. MUSCULOSKELETAL: No obvious deformities. No clubbing. No cyanosis. No edema. NEUROLOGICAL: Awake and alert. No obvious cranial nerve deficits. Motor grossly within normal limits. Normal speech. PSYCHIATRIC: Appropriate mood and affect; insight and judgment normal. Data Data Last Documented VS Orders Orders Complete Blood Count With Diff (03/20/17 02:59) Comprehensive Metabolic Panel (03/20/17 02:59) Lipase (03/20/17 02:59) Urinalysis - C+S If Indicated (03/20/17 02:59) Ct Abd/Pel W/O Iv Contrast (03/20/17 02:59) Iv Access Insert/Monitor (03/20/17 02:59) Ecg Monitoring (03/20/17 02:59) Oximetry (03/20/17 02:59) Ondansetron Inj (Zofran Inj) (03/20/17 03:00) Sodium Chlor 0.9% 1000 Ml Inj (Ns 1000 M (03/20/17 02:59) Sodium Chloride 0.9% Flush (Ns Flush) (03/20/17 03:00) Sodium Chlor 0.9% 1000 Ml Inj (Ns 1000 M (03/20/17 03:15) Metronidazole 500 Mg Inj (Flagyl 500 Mg (03/20/17 05:00) Admit Order (Ed Use Only) (03/20/17 04:58) Labs Laboratory Tests Test 03/20/17 03:10 White Blood Count 20.1 TH/MM3 Red Blood Count 6.81 MIL/MM3 Hemoglobin 15.8 GM/DL Hematocrit 50.2 % Mean Corpuscular Volume 73.8 FL Mean Corpuscular Hemoglobin 23.2 PG Mean Corpuscular Hemoglobin Concent 31.4 % Red Cell Distribution Width 17.7 % Platelet Count 309 TH/MM3 Mean Platelet Volume 8.2 FL Neutrophils (%) (Auto) 88.4 % Lymphocytes (%) (Auto) 4.6 % Monocytes (%) (Auto) 5.3 % Eosinophils (%) (Auto) 0.4 % Basophils (%) (Auto) 1.3 % Neutrophils # (Auto) 17.8 TH/MM3 Lymphocytes # (Auto) 0.9 TH/MM3 Monocytes # (Auto) 1.1 TH/MM3 Eosinophils # (Auto) 0.1 TH/MM3 Basophils # (Auto) 0.3 TH/MM3 CBC Comment AUTO DIFF Differential Total Cells Counted 100 Neutrophils % (Manual) 86 % Band Neutrophils % 2 % Lymphocytes % 4 % Monocytes % 8 % Neutrophils # (Manual) 17.7 TH/MM3 Differential Comment FINAL DIFF MANUAL Platelet Estimate NORMAL Platelet Morphology Comment NORMAL Red Cell Morphology Comment NORMAL Blood Urea Nitrogen 17 MG/DL Creatinine 1.21 MG/DL Random Glucose 90 MG/DL Total Protein 7.9 GM/DL Albumin 3.5 GM/DL Calcium Level 8.6 MG/DL Alkaline Phosphatase 114 U/L Aspartate Amino Transf (AST/SGOT) 28 U/L Alanine Aminotransferase (ALT/SGPT) 27 U/L Total Bilirubin 0.7 MG/DL Sodium Level 139 MEQ/L Potassium Level 4.7 MEQ/L Chloride Level 105 MEQ/L Carbon Dioxide Level 25.5 MEQ/L Anion Gap 9 MEQ/L Estimat Glomerular Filtration Rate 66 ML/MIN Lipase 69 U/L MDM Medical Decision Making Medical Screen Exam Complete: Yes Emergency Medical Condition: Yes Medical Record Reviewed: Yes Interpretation(s) Twelve-lead EKG was reviewed by me. Normal sinus rhythm, normal axis, nonspecific ST-T wave changes. Heart rate of 90 bpm. Differential Diagnosis Acute gastroenteritis, dehydration, electrolyte abnormalities, acute appendicitis Narrative Course 4:14 AM patient is getting IV fluid bolus 2. Awaiting for blood test results. Have also given him Zofran IV. 4:52 AM blood test results of back and patient has significant leukocytosis. CT of the abdomen and pelvis shows a ventral hernia with omentum and no bowel loops. In my opinion this is probably C. difficile colitis. I have not started the patient on any IV antibiotic. I will give him a dose of IV Flagyl. Awaiting for the hospitalist to call back for admission. Procedures EKG Prior to Arrival: No Diagnosis Primary Impression: Diarrhea Qualified Codes: A09 - Infectious gastroenteritis and colitis, unspecified Additional Impressions: Leukocytosis Qualified Codes: D72.829 - Elevated white blood cell count, unspecified Abdominal pain Qualified Codes: R10.31 - Right lower quadrant pain Ventral hernia Qualified Codes: K43.9 - Ventral hernia without obstruction or gangrene Dehydration Admitting Information Admitting Physician Requests: it Johanny Michael MD Mar 20, 2017 02:51
[2017-03-20] MEDS ORDERED: SODIUM CHLOR 0.9% 1000 ML INJ 1,000 ML IV SCH (02:59)
[2017-03-20] MEDS ORDERED: SODIUM CHLORIDE 0.9% FLUSH 10 ML FLUSH IV FLUSH PRN ×2 (03:00→05:15)
[2017-03-20] MEDS ORDERED: ONDANSETRON HCL 4 MG/2 ML VIAL IVP ONE (03:00)
[2017-03-20] MEDS ORDERED: SODIUM CHLOR 0.9% 1000 ML INJ 1,000 ML IV ONE (03:15)
[2017-03-20 03:39] LABS: AUTOMATED NEUTROPHIL # 17.8 TH/MM3 (1.8-7.7); BASOPHIL # 0.3 TH/MM3 (0-0.2); BASOPHIL % 1.3 % (0.0-2.0); EOSINOPHIL # 0.1 TH/MM3 (0-0.4); EOSINOPHIL % 0.4 % (0.0-4.0); HEMATOCRIT 50.2 % (39.0-51.0); LYMPH % 4.6 % (9.0-44.0); LYMPHOCYTE # 0.9 TH/MM3 (1.0-4.8); MEAN CELL VOLUME 73.8 FL (80.0-100.0); MEAN CORPUSCULAR HEMOGLOBIN 23.2 PG (27.0-34.0); MEAN CORPUSCULAR HGB CONC 31.4 % (32.0-36.0); MONO % 5.3 % (0.0-8.0); NEUT % 88.4 % (16.0-70.0); PLATELET COUNT 309 TH/MM3 (150-450); RED BLOOD COUNT 6.81 MIL/MM3 (4.50-5.90); RED CELL DISTRIBUTION WIDTH 17.7 % (11.6-17.2); WHITE BLOOD COUNT 20.1 TH/MM3 (4.0-11.0)
[2017-03-20 03:51] LABS: HEMO FLAGS AUTO DIFF
[2017-03-20 04:15] LABS: ALKALINE PHOSPHATASE 114 U/L (45-117); TOTAL BILIRUBIN ADULT 0.7 MG/DL (0.2-1.0)
[2017-03-20 04:29] LABS: ALT (GPT) 27 U/L (12-78); ANION GAP 9 MEQ/L (5-15); AST (GOT) 28 U/L (15-37); BICARBONATE 25.5 MEQ/L (21.0-32.0); BLOOD UREA NITROGEN 17 MG/DL (7-18); CHLORIDE 105 MEQ/L (98-107); GLOMERULAR FILTRATION RATE 66 ML/MIN (>89); POTASSIUM 4.7 MEQ/L (3.5-5.1); SODIUM (NA) 139 MEQ/L (136-145)
[2017-03-20 04:30] LABS: BANDS 2 % (0-6); NEUTROPHIL # MANUAL DIFF 17.7 TH/MM3 (1.8-7.7); POLYS (SEG NEUTROPHILS) 86 % (16-70); WBC DIFF SAMPLE 100
[2017-03-20 04:31] LABS: SCAN/DIFF FINAL DIFF MANUAL
[2017-03-20 04:32] LABS: PLATELET ESTIMATE SMEAR NORMAL (NORMAL); PLATELET MORPHOLOGY NORMAL (NORMAL)
--- NOTE | 2017-03-20 04:40 | RADRPT ---
EXAM DATE/TIME: 03/20/2017 03:56 [facility] COMPARISON: CT ABDOMEN & PELVIS W/O CONTRAST, March 12, 2017, 14:44. INDICATIONS : Right side abdominal pain with nausea and diarrhea. ORAL CONTRAST: No oral contrast ingested. RADIATION DOSE: 37.12 CTDIvol (mGy) ; Patient body habitus MEDICAL HISTORY : Hypertension. Chronic obstructive pulmonary disease. Renal calculi. Ulcers. DVT. SURGICAL HISTORY : Cholecystectomy. ENCOUNTER: Initial ACUITY: 2 days PAIN SCALE: 10/10 LOCATION: Right Abdomen. TECHNIQUE: Volumetric scanning of the abdomen and pelvis was performed. Using automated exposure control and ad justment of the mA and/or kV according to patient size, radiation dose was kept as low as reasonably achievable to obtain optimal diagnostic quality images. DICOM format image data is available electro nically for review and comparison. FINDINGS: LOWER LUNGS: Minimal bibasilar groundglass opacities likely reflecting atelectasis. LIVER: Homogeneous density without lesion. There is no dilation of the biliary tree. Gallbladder is surgica lly absent. SPLEEN: Normal size without lesion. PANCREAS: Within normal limits. KIDNEYS: Normal in size and shape. There is no mass, stone, or hydronephrosis. ADRENAL GLANDS: Within normal limits. VASCULAR: There is no aortic aneurysm. BOWEL/MESENTERY: Bowel appears unremarkable without evidence for obstruction. Appendix appears normal. There is no sig nificant free fluid or drainable fluid collection. There is no pneumatosis or free air. ABDOMINAL WALL: Redemonstration of large left anterior abdominal wall hernia containing mesenteric fat. RETROPERITONEUM: There is no lymphadenopathy. BLADDER: No wall thickening or mass. REPRODUCTIVE: Within normal limits. INGUINAL: There is no lymphadenopathy or hernia. MUSCULOSKELETAL: Within normal limits for patient age. CONCLUSION: 1. No definitive CT findings to explain patient's abdominal pain. 2. Normal appendix. 3. Redemonstration of large left anterior bowel wall hernia containing mesenteric fat. 4. No significant interval change. Vic Quintanilla MD on March 20, 2017 at 4:33 Board Certified Radiologist. This report was verified electronically.
[2017-03-20] MEDS ORDERED: metroNIDAZOLE 500 MG INJ 100 ML IV ONE (05:00)
[2017-03-20] MEDS ORDERED: NALOXONE HCL 0.4 MG/ML AMP IV PRN (05:15)
[2017-03-20] MEDS ORDERED: ONDANSETRON HCL 4 MG/2 ML VIAL IVP PRN (05:15)
[2017-03-20] MEDS ORDERED: ACETAMINOPHEN 325 MG TAB PO PRN (05:15)
[2017-03-20] MEDS: SODIUM CHLOR 0.9% 1000 ML INJ 1,000 ML IV SCH ×3 (06:23→17:57)
[2017-03-20] MEDS: SODIUM CHLORIDE 0.9% FLUSH 10 ML FLUSH IV FLUSH SCH ×2 (09:00→21:00)
[2017-03-20 09:27] LABS: BACTERIA, URINE RARE /hpf; BLOOD, URINE NEG (NEG); COMMENT (UR) CULT NOT INDICATED; CULTURE IF INDICATED CULT NOT INDICATED; GLUCOSE,URINE NEG (NEG); KETONE, URINE NEG (NEG); MUCUS URINE FEW /lpf (OCC); NITRITE,URINE NEG (NEG); PH, URINE 5.5 (5.0-8.5); URINE COLOR YELLOW (YELLW/STRAW)
--- NOTE | 2017-03-20 11:33 | EKG ---
Date Performed: 03/20/2017 Time Performed: 01:38:17 PTAGE: 41 years EKG: Sinus rhythm NORMAL ECG PREVIOUS TRACING : 08/18/2016 15.45 Compared to previous tracing, nonspecific T wave changes causey ve resolved. DOCTOR: Tony Sauceda Interpretating Date/Time 03/20/2017 11:31:40
--- NOTE | 2017-03-20 12:02 | HHI.HP ---
HPI Service [facility] ([place], [place])ists Primary Care Physician Jovan Eastman MD Admission Diagnosis diarrhea, leukocytosis, possible C. difficile colitis Diagnoses: Chief Complaint: Vomiting and diarrhea Travel History International Travel<30 Days: No Contact w/Intl Traveler <30 Da: No Traveled to Known Affected Are: No History of Present Illness 41-year-old male with a medical history significant for bipolar disorder, asthma , hyperlipidemia, history of lower extremity DVT who presented to the hospital last night with complaint of vomiting and diarrhea. Patient states his symptoms started after dinner. Since arrival to the hospital he hasn't had any nausea, vomiting, or diarrhea. He was found to have marked leukocytosis and there were concerns for C. difficile. Hospitalist service asked to admit the patient. Currently reports is feeling well. He is hungry and wants to eat. No nausea or abdominal pain. No fevers or chills. No dysuria. No cough. Review of Systems Constitutional: DENIES: Fever, Chills Endocrine: DENIES: Polyuria, Polyphagia Respiratory: DENIES: Cough, Shortness of breath Gastrointestinal: DENIES: Abdominal pain, Nausea, Vomiting Except as stated in HPI: all other systems reviewed are Neg Past Family Social History Past Medical History Bipolar disorder Asthma Hypertension Hyperlipidemia History of DVT Sleep apnea Past Surgical History Cholecystectomy Eye surgery Left hand surgery. Reported Medications Reported Meds & Active Scripts Active Reported Trazodone (Trazodone HCl) 100 Mg Tablet 100 Mg PO HS Spiriva Handihaler (Tiotropium Inh) 18 Mcg Cap 18 Mcg INH DAILY 1 capsule = 18 mcg Simvastatin 20 Mg Tab 20 Mg PO DAILY Advair Diskus Inh (Fluticasone-Salmeterol Inh) 250-50 Mcg/Blist Aer 1 Puff INH BID Rinse mouth after use. Ventolin Hfa 18 GM Inh (Albuterol Sulfate) 90 Mcg/Act Aer 2 Puff INH Q6H PRN Xarelto (Rivaroxaban) 20 Mg Tab 20 Mg PO DAILY Lisinopril 20 Mg Tab 20 Mg PO DAILY Escitalopram (Escitalopram Oxalate) 20 Mg Tab 30 Mg PO DAILY Divalproex ER (Divalproex Sodium) 500 Mg Tab 1,000 Mg PO BID Omeprazole 20 Mg Tab 20 Mg PO BID Allergy (Loratadine) 10 Mg Tab Allergies: Coded Allergies: No Known Allergies (Verified , 03/20/17) Family History Reviewed and is noncontributory. Social History Alcohol Use: No Tobacco Use: Yes (1/2ppd) Substance Use: No Physical Exam Vital Signs Vital Signs Date Time Temp Pulse Resp B/P (MAP) Pulse Ox O2 Delivery O2 Flow Rate FiO2 03/20/17 08:50 97.6 76 18 118/73 (88) 94 03/20/17 03:20 89 18 131/69 (89) 92 Room Air 03/20/17 03:20 92 Room Air 03/20/17 01:32 92 20 166/88 (114) 93 Room Air 03/20/17 01:15 97.6 Physical Exam GENERAL: This is a well-nourished, well-developed patient, in no apparent distress. SKIN: No rashes, ecchymoses or lesions. Cool and dry. HEAD: Atraumatic. Normocephalic. No temporal or scalp tenderness. EYES: Pupils equal round and reactive. Extraocular motions intact. No scleral icterus. No injection or drainage. ENT: Nose without bleeding, purulent drainage or septal hematoma. Throat without erythema, tonsillar hypertrophy or exudate. Uvula midline. Airway patent. NECK: Trachea midline. No JVD or lymphadenopathy. Supple, nontender, no meningeal signs. CARDIOVASCULAR: Regular rate and rhythm without murmurs, gallops, or rubs. RESPIRATORY: Clear to auscultation. Breath sounds equal bilaterally. No wheezes , rales, or rhonchi. GASTROINTESTINAL: Abdomen soft, non-tender, nondistended. No hepato-splenomegaly , or palpable masses. No guarding. MUSCULOSKELETAL: Extremities without clubbing, cyanosis, or edema. No joint tenderness, effusion, or edema noted. No calf tenderness. Negative Homans sign bilaterally. NEUROLOGICAL: Awake and alert. Cranial nerves II through XII intact. Motor and sensory grossly within normal limits. Five out of 5 muscle strength in all muscle groups. Normal speech. Laboratory Laboratory Tests Test 03/20/17 03:10 03/20/17 08:45 White Blood Count 20.1 Red Blood Count 6.81 Hemoglobin 15.8 Hematocrit 50.2 Mean Corpuscular Volume 73.8 Mean Corpuscular Hemoglobin 23.2 Mean Corpuscular Hemoglobin Concent 31.4 Red Cell Distribution Width 17.7 Platelet Count 309 Mean Platelet Volume 8.2 Neutrophils (%) (Auto) 88.4 Lymphocytes (%) (Auto) 4.6 Monocytes (%) (Auto) 5.3 Eosinophils (%) (Auto) 0.4 Basophils (%) (Auto) 1.3 Neutrophils # (Auto) 17.8 Lymphocytes # (Auto) 0.9 Monocytes # (Auto) 1.1 Eosinophils # (Auto) 0.1 Basophils # (Auto) 0.3 CBC Comment AUTO DIFF Differential Total Cells Counted 100 Neutrophils % (Manual) 86 Band Neutrophils % 2 Lymphocytes % 4 Monocytes % 8 Neutrophils # (Manual) 17.7 Differential Comment FINAL DIFF MANUAL Platelet Estimate NORMAL Platelet Morphology Comment NORMAL Red Cell Morphology Comment NORMAL Blood Urea Nitrogen 17 Creatinine 1.21 Random Glucose 90 Total Protein 7.9 Albumin 3.5 Calcium Level 8.6 Alkaline Phosphatase 114 Aspartate Amino Transf (AST/SGOT) 28 Alanine Aminotransferase (ALT/SGPT) 27 Total Bilirubin 0.7 Sodium Level 139 Potassium Level 4.7 Chloride Level 105 Carbon Dioxide Level 25.5 Anion Gap 9 Estimat Glomerular Filtration Rate 66 Lipase 69 Urine Color YELLOW Urine Turbidity CLEAR Urine pH 5.5 Urine Specific [place] 1.025 Urine Protein NEG Urine Glucose (UA) NEG Urine Ketones NEG Urine Occult Blood NEG Urine Nitrite NEG Urine Bilirubin NEG Urine Urobilinogen LESS THAN 2.0 Urine Leukocyte Esterase NEG Urine RBC 1 Urine WBC 1 Urine Bacteria RARE Urine Mucus FEW Microscopic Urinalysis Comment CULT NOT INDICATED Result Diagram: 03/20/1730903/20/17309 Imaging Last Impressions Abdomen/Pelvis CT 03/20/17258 Signed Impressions: Service Date/Time: Monday, March 20, 2017 03:56 - CONCLUSION: 1. No definitive CT findings to explain patient's abdominal pain. 2. Normal appendix. 3. Redemonstration of large left anterior bowel wall hernia containing mesenteric fat. 4. No significant interval change. MD Gricel Post VTE Risk Assessment Gricel VTE Risk Assessment: Mod/High Risk (score >= 2) Caprini Risk Assessment Model Point Value = 1 Point Value = 2 Point Value = 3 Point Value = 5 Age 41-60 Minor surgery BMI > 25 kg/m2 Swollen legs Varicose veins or History of unexplained or recurrent spontaneous Oral contraceptives or hormone replacement Sepsis (< 1 month) Serious lung disease, including pneumonia (< 1 month) Abnormal pulmonary function Acute myocardial infarction Congestive heart failure (< 1 month) History of inflammatory bowel disease Medical patient at bed rest Age 61-74 Arthroscopic surgery Major open surgery (> 45 min) Laparoscopic surgery (> 45 min) Malignancy Confined to bed (> 72 hours) Immobilizing plaster cast Central venous access Age >= 75 History of VTE Family history of VTE Factor V Leiden Prothrombin [id number] Lupus anticoagulant Anticardiolipin antibodies Elevated serum homocysteine Heparin-induced thrombocytopenia Other congenital or acquired thrombophilia Stroke (< 1 month) Elective arthroplasty Hip, pelvis, or leg fracture Acute spinal cord injury (< 1 month) Prophylaxis Regimen Total Risk Factor Score Risk Level Prophylaxis Regimen 0-1 Low Early ambulation 2 Moderate Order ONE of the following: *Sequential Compression Device (SCD) *Heparin 5000 units SQ BID 3-4 Higher Order ONE of the following medications: *Heparin 5000 units SQ TID *Enoxaparin/Lovenox 40 mg SQ daily (WT < 150 kg, CrCl > 30 mL/min) *Enoxaparin/Lovenox 30 mg SQ daily (WT < 150 kg, CrCl > 10-29 mL/min) *Enoxaparin/Lovenox 30 mg SQ BID (WT < 150 kg, CrCl > 30 mL/min) AND/OR *Sequential Compression Device (SCD) 5 or more Highest Order ONE of the following medications: *Heparin 5000 units SQ TID (Preferred with Epidurals) *Enoxaparin/Lovenox 40 mg SQ daily (WT < 150 kg, CrCl > 30 mL/min) *Enoxaparin/Lovenox 30 mg SQ daily (WT < 150 kg, CrCl > 10-29 mL/min) *Enoxaparin/Lovenox 30 mg SQ BID (WT < 150 kg, CrCl > 30 mL/min) AND *Sequential Compression Device (SCD) Assessment and Plan Problem List: (1) Vomiting ICD Code: R11.10 - Vomiting, unspecified Status: Resolved (2) Leukocytosis ICD Code: D72.829 - Elevated white blood cell count, unspecified Status: Resolved (3) Abdominal pain ICD Code: R10.9 - Unspecified abdominal pain Status: Resolved (4) Diarrhea ICD Code: R19.7 - Diarrhea, unspecified Status: Resolved Assessment and Plan 41-year-old male who presented with acute, multiple episodes of vomiting and diarrhea. The patient also had abdominal pain and marked leukocytosis. ED physician expressed concern for C. difficile colitis. The patient was empirically treated with Flagyl. He has not had any bowel movement here to test for C. difficile. Abdominal CT is unremarkable. He has a known hernia. I suspect the patient has gastroenteritis. This could be viral. - Start the patient on a diet. Monitor I/O - Okay to discontinue IV fluid. - Consider discharging home soon if he remains asymptomatic Leukocytosis: This could be reactive. ? Gastroenteritis. Will obtain a repeat CBC. Continue the patient's chronic home medications as indicated. Physician Certification 2 Midnight Certification Type: Admission for Inpatient Services Order for Inpatient Services The services are ordered in accordance with Medicare regulations or non- Medicare payer requirements, as applicable. In the case of services not specified as inpatient-only, they are appropriately provided as inpatient services in accordance with the 2-midnight benchmark. Estimated LOS (days): 2 days is the estimated time the patient will need to remain in the hospital, assuming treatment plan goals are met and no additional complications. Post-Hospital Plan: Home Problem Qualifiers (1) Leukocytosis: Qualified Codes: D72.829 - Elevated white blood cell count, unspecified (2) Abdominal pain: Qualified Codes: R10.31 - Right lower quadrant pain (3) Diarrhea: Qualified Codes: A09 - Infectious gastroenteritis and colitis, unspecified Eliud Landry MD Mar 20, 2017 12:02
[2017-03-20] MEDS: metroNIDAZOLE 500 MG INJ 100 ML IV SCH ×2 (12:22→22:55)
[2017-03-20] MEDS ORDERED: ALBUTEROL SULFATE 90 MCG/ACT HFA 8 GM INHALER INH PRN (15:45)
[2017-03-20] MEDS ORDERED: PILL SPLITTER OTHER PRN (16:00)
[2017-03-20 17:37] LABS: AUTOMATED NEUTROPHIL # 7.4 TH/MM3 (1.8-7.7); BASOPHIL # 0.1 TH/MM3 (0-0.2); BASOPHIL % 0.5 % (0.0-2.0); EOSINOPHIL # 0.1 TH/MM3 (0-0.4); EOSINOPHIL % 1.1 % (0.0-4.0); HEMATOCRIT 45.1 % (39.0-51.0); HEMO FLAGS DIFF FINAL; LYMPH % 24.8 % (9.0-44.0); LYMPHOCYTE # 2.8 TH/MM3 (1.0-4.8); MEAN CELL VOLUME 74.1 FL (80.0-100.0); MEAN CORPUSCULAR HEMOGLOBIN 23.3 PG (27.0-34.0); MEAN CORPUSCULAR HGB CONC 31.4 % (32.0-36.0); MONO % 6.9 % (0.0-8.0); NEUT % 66.7 % (16.0-70.0); PLATELET COUNT 261 TH/MM3 (150-450); RED BLOOD COUNT 6.08 MIL/MM3 (4.50-5.90); RED CELL DISTRIBUTION WIDTH 17.9 % (11.6-17.2); WHITE BLOOD COUNT 11.2 TH/MM3 (4.0-11.0)
[2017-03-20] MEDS ORDERED: traZODone HCL 100 MG TAB PO SCH (21:00)
[2017-03-20] MEDS: DIVALPROEX SODIUM E.R. 500 MG TAB PO SCH (22:54)
[2017-03-20] MEDS: PANTOPRAZOLE SOD 20 MG DELAYED RELEASE TAB PO SCH (22:54)
[2017-03-20] MEDS: BUDESONIDE-FORMOTEROL 160/4.5 MCG INHALER INH SCH (23:23)
[2017-03-21 00:07] VITALS: BP 156/70; PULSE 82; RESP 18; TEMP 98.5; O2SAT 96
[2017-03-21] MEDS: SODIUM CHLOR 0.9% 1000 ML INJ 1,000 ML IV SCH ×2 (01:14→11:14)
[2017-03-21 02:02] VITALS: PULSE 82
[2017-03-21] MEDS: metroNIDAZOLE 500 MG INJ 100 ML IV SCH (05:01)
[2017-03-21 05:16] VITALS: BP 140/72; PULSE 85; RESP 18; TEMP 98.8; O2SAT 100
[2017-03-21] MEDS ORDERED: LISINOPRIL 20 MG TAB PO SCH (09:00)
[2017-03-21] MEDS: SODIUM CHLORIDE 0.9% FLUSH 10 ML FLUSH IV FLUSH SCH (09:00)
[2017-03-21] MEDS ORDERED: ESCITALOPRAM OXALATE 20 MG TAB PO SCH (09:00)
[2017-03-21] MEDS ORDERED: PRAVASTATIN SOD 40 MG TAB PO SCH (09:00)
[2017-03-21] MEDS ORDERED: TIOTROPIUM BROMIDE 18 MCG INH INH SCH (09:00)
[2017-03-21] MEDS ORDERED: RIVAROXABAN 20 MG TAB PO SCH (09:00)
[2017-03-21] MEDS: BUDESONIDE-FORMOTEROL 160/4.5 MCG INHALER INH SCH (10:15)
[2017-03-21] MEDS: DIVALPROEX SODIUM E.R. 500 MG TAB PO SCH (10:17)
[2017-03-21] MEDS: PANTOPRAZOLE SOD 20 MG DELAYED RELEASE TAB PO SCH (10:21)
[2017-03-21 10:22] LABS: AUTOMATED NEUTROPHIL # 6.3 TH/MM3 (1.8-7.7); BASOPHIL % 0.4 % (0.0-2.0); EOSINOPHIL # 0.2 TH/MM3 (0-0.4); EOSINOPHIL % 1.7 % (0.0-4.0); HEMATOCRIT 44.7 % (39.0-51.0); HEMO FLAGS DIFF FINAL; LYMPH % 23.6 % (9.0-44.0); LYMPHOCYTE # 2.2 TH/MM3 (1.0-4.8); MEAN CELL VOLUME 73.9 FL (80.0-100.0); MEAN CORPUSCULAR HEMOGLOBIN 23.2 PG (27.0-34.0); MEAN CORPUSCULAR HGB CONC 31.4 % (32.0-36.0); MONO % 7.6 % (0.0-8.0); NEUT % 66.7 % (16.0-70.0); PLATELET COUNT 245 TH/MM3 (150-450); RED BLOOD COUNT 6.04 MIL/MM3 (4.50-5.90); RED CELL DISTRIBUTION WIDTH 18.1 % (11.6-17.2); WHITE BLOOD COUNT 9.4 TH/MM3 (4.0-11.0)
[2017-03-21 10:51] LABS: BICARBONATE 28.8 MEQ/L (21.0-32.0); POTASSIUM 4.3 MEQ/L (3.5-5.1)
[2017-03-21 11:02] VITALS: PULSE 83
--- NOTE | 2017-03-21 11:25 | HHI.PR ---
Subjective Remarks Follow-up gastroenteritis 03/21/17-patient seen and examined, reports improvement of diarrhea as well as nausea and emesis. No acute event overnight. Objective Vitals Vital Signs Date Time Temp Pulse Resp B/P (MAP) Pulse Ox O2 Delivery O2 Flow Rate FiO2 03/21/17 11:02 83 03/21/17 05:16 98.8 85 18 140/72 (94) 100 03/21/17 02:02 82 03/21/17 02:00 Nasal Cannula 3.00 03/21/17 00:07 98.5 82 18 156/70 (98) 96 03/20/17 20:00 98.4 81 18 141/72 (95) 100 03/20/17 16:21 97.3 77 18 130/76 (94) 18 03/20/17 13:17 85 03/20/17 12:40 97.3 75 18 123/71 (88) 94 I/O 03/20/17 03/20/17 03/20/17 03/21/17 03/21/17 03/21/17 07:00 15:00 23:00 07:00 15:00 23:00 Intake Total 2000 ml 200 ml 1264 ml 540 ml Output Total 200 ml Balance 2000 ml 200 ml 1064 ml 540 ml Intake Oral 120 ml 540 ml IV Total 2000 ml 200 ml 1144 ml Output Urine Total 200 ml Result Diagram: 03/21/1793003/21/17930 Imaging Last Impressions Abdomen/Pelvis CT 03/20/17 0259 Signed Impressions: Service Date/Time: Monday, March 20, 2017 03:56 - CONCLUSION: 1. No definitive CT findings to explain patient's abdominal pain. 2. Normal appendix. 3. Redemonstration of large left anterior bowel wall hernia containing mesenteric fat. 4. No significant interval change. Vic Quintanilla MD Objective Remarks GENERAL: NAD SKIN: Warm and dry. HEAD: Normocephalic. EYES: No scleral icterus. No injection or drainage. NECK: Supple, trachea midline. No JVD or lymphadenopathy. CARDIOVASCULAR: Regular rate and rhythm without murmurs, gallops, or rubs. RESPIRATORY: Breath sounds equal bilaterally. No accessory muscle use. GASTROINTESTINAL: Abdomen soft, non-tender, nondistended. MUSCULOSKELETAL: No cyanosis, or edema. BACK: Nontender without obvious deformity. No CVA tenderness. Procedures none A/P Problem List: (1) Vomiting ICD Code: R11.10 - Vomiting, unspecified Status: Resolved (2) Leukocytosis ICD Code: D72.829 - Elevated white blood cell count, unspecified Status: Resolved (3) Abdominal pain ICD Code: R10.9 - Unspecified abdominal pain Status: Resolved (4) Diarrhea ICD Code: R19.7 - Diarrhea, unspecified Status: Resolved Assessment and Plan 41-year-old man with Gastroenteritis Resolve with conservative treatment Advance diet as tolerated Discharge patient today home History of DVT, bipolar and other chronic medical conditions Continue outpatient medications Discharge Planning Discharge patient to home Condition on discharge: Improved Regular Diet as tolerated Ad Indira activity Rx written:None Follow-up with primary care physician in 1week Problem Qualifiers (1) Leukocytosis: Qualified Codes: D72.829 - Elevated white blood cell count, unspecified (2) Abdominal pain: Qualified Codes: R10.31 - Right lower quadrant pain (3) Diarrhea: Qualified Codes: A09 - Infectious gastroenteritis and colitis, unspecified Feliz Michelle MD Mar 21, 2017 11:25
== END 2017-03-21 12:36 | disposition home or self-care (01) | DRG 372 ==
LOC: NEPE 00:59 → NEDA 04:59 → N05A 07:00
PROVIDERS: ADMIT Hospitalist; ATTEND Hospitalist
DX: A04.7 Enterocolitis due to Clostridium difficile (principal); Z68.44 Body mass index [BMI] 60.0-69.9, adult; I10 Essential (primary) hypertension; E66.01 Morbid (severe) obesity due to excess calories; E78.5 Hyperlipidemia, unspecified; G47.30 Sleep apnea, unspecified; F31.9 Bipolar disorder, unspecified; K43.9 Ventral hernia without obstruction or gangrene; F17.200 Nicotine dependence, unspecified, uncomplicated; Z86.718 Personal history of other venous thrombosis and embolism; Z87.442 Personal history of urinary calculi; J44.9 Chronic obstructive pulmonary disease, unspecified
CPT/HCPCS: 74176; 80048; 80053; 81001; 83690; 85007; 85025; 85027; 93005; 96361; 96374; J2405; J7030

== ENCOUNTER 2017-03-27 15:43 | Emergency (ER) | payer MEDICARE, MEDICAID ==
[~2017-03-27] VITALS: Ht 165.1 cm; Wt 170.0 kg
[~2017-03-27 15:43] MED LIST changes: -AMOX500T PO; -BACT800T5 PO; -CIPR0.3S EACH EAR; -DEPA500T3 PO; -DIAZ5 PO; -DIPH50TA PO; +DIVA500T3 PO; +ESCI20TA PO; -LEXA20TA PO; +LISI-515 PO; +LORA-520; -LORA10TA7 PO; +OMEP20TA PO; -OMEP20TA39 PO; -PRED20 PO; -PRIN10TA PO; -SIMV20 PO; +SIMV20TA PO; -TRAZ100 PO; +TRAZ100T6 PO; +XARE20TA PO; -ZITHTAB PO
[2017-03-27 15:59] VITALS: BP 123/65; PULSE 89; RESP 20; TEMP 98.3; O2SAT 92
[2017-03-27] MEDS ORDERED: LEXA20TA PO (16:11)
[2017-03-27] MEDS ORDERED: TETANUS/DIPHTHERIA TOXOID ADULT 0.5 ML VIAL IM ONE (16:30)
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
[2017-03-27] MEDS ORDERED: BUPIVACAINE HCL PF 0.5% 10 ML VIAL INFIL ONE (17:00)
[2017-03-27] MEDS ORDERED: LIDOCAINE HCL 1% 50 ML VIAL INFIL ONE (17:00)
[2017-03-27] MEDS ORDERED: NORC5TAB PO (17:10)
--- NOTE | 2017-03-27 17:28 | PD ---
Physical Exam Time Seen by Provider: 17:10 Data Data Last Documented VS Vital Signs Date Time Temp Pulse Resp B/P (MAP) Pulse Ox O2 Delivery O2 Flow Rate FiO2 03/27/17 15:59 98.3 89 20 123/65 (84) 92 Orders Orders Tetanus/Diphtheria Tox Adult (Tetanus/Di (03/27/17 16:30) Ankle, Complete ([id number]) (03/27/17 16:18) Foot, Complete ([id number]) (03/27/17 16:18) Lidocaine 1% Inj (50 Ml) (Xylocaine 1% I (03/27/17 17:00) Bupivacaine Pf 0.5% Inj (Marcaine Pf 0.5 (03/27/17 17:00) Splint Or Brace Apply/Monitor (03/27/17 17:06) Crutches (03/27/17 17:06) MDM Medical Record Reviewed: Yes Supervised Visit with OLESYA: Yes Procedures Procedure Narrative REDUCTION: Digital block was performed in the right great toe with 50/50 combination of 1% lidocaine and 0.5% lidocaine. After adequate anesthesia, patient's foot was held in countertraction and the great toe was gently pulled laterally. Neurovascular status maintained. Diagnosis Primary Impression: Fracture of toe of right foot Qualified Codes: S92.424A - Nondisplaced fracture of distal phalanx of right great toe, initial encounter for closed fracture Additional Impression: Avulsion fracture of navicular bone of right foot Qualified Codes: S92.251A - Displaced fracture of navicular [scaphoid] of right foot, initial encounter for closed fracture Patient Instructions: General Instructions Additional Instruction: Posterior short leg splint and crutches given. Follow-up with orthopedist. Scripts Hydrocodone-Acetaminophen ([place]) 5-325 mg Tab 1 TAB PO Q6H Y for PAIN, #30 TAB 0 Refills Prov: Jose Sanders MD 03/27/17 Disposition: 01 DISCHARGE HOME Condition: Stable Lola Simon Mar 27, 2017 17:28
== END 2017-03-27 18:42 | disposition home or self-care (01) ==
LOC: NEPD 15:43
DX: S92.424A Nondisplaced fracture of distal phalanx of right great toe, initial encounter for closed fracture (principal); S92.251A Displaced fracture of navicular [scaphoid] of right foot, initial encounter for closed fracture; V29.9XXA Motorcycle rider (driver) (passenger) injured in unspecified traffic accident, initial encounter; Z23 Encounter for immunization
CPT/HCPCS: 28495; 29515; 73610; 73630; 90471; 90714; 99283; E0113

== ENCOUNTER 2017-10-12 12:44 | Emergency (ER) | payer MEDICAID, MEDICARE ==
[~2017-10-12] VITALS: Ht 170.2 cm; Wt 166.4 kg
[~2017-10-12 12:44] MED LIST changes: +NORC5TAB PO; -OMEP20TA PO; +OMEP20TA93 PO; +TRAZ100T10 PO; -TRAZ100T6 PO
[2017-10-12 13:09] VITALS: BP 131/69; PULSE 84; RESP 18; TEMP 97.7; O2SAT 97
--- NOTE | 2017-10-12 13:47 | PD ---
HPI Chief Complaint: ENT Complaint Time Seen by Provider: 13:43 Travel History International Travel<30 days: No Contact w/Intl Traveler<30days: No Traveled to known affect area: No History of Present Illness HPI This is a 42-year-old male presents for evaluation of sore throat. Reports that he has had a sore throat for 1 year. He reports that it hurts to swallow. Slight associated cough. He was seen by microelectronics assembler Dr. Dominique 6 days ago and prescribed nystatin. He reports of the CT of the neck was also ordered. He has not yet had the CT performed. He presents today because the sore throat persists despite the nystatin use. Denies fevers, chills. 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 He has no other complaints at this time. History Past Medical Histgory Hx Cancer: No Social History Alcohol Use: No Tobacco Use: Yes (1/2ppd) Allergies-Medications (Allergen,Severity, Reaction): Coded Allergies: No Known Allergies (Verified , 03/20/17) Reported Meds & Prescriptions Reported Meds & Active Scripts Active [place] (Hydrocodone-Acetaminophen) 5-325 mg Tab 1 Tab PO Q6H PRN Reported Trazodone (Trazodone HCl) 100 Mg Tablet 100 Mg PO HS Spiriva Handihaler (Tiotropium Inh) 18 Mcg Cap 18 Mcg INH DAILY 1 capsule = 18 mcg Simvastatin 20 Mg Tab 20 Mg PO DAILY Advair Diskus Inh (Fluticasone-Salmeterol Inh) 250-50 Mcg/Blist Aer 1 Puff INH BID Rinse mouth after use. Ventolin Hfa 18 GM Inh (Albuterol Sulfate) 90 Mcg/Act Aer 2 Puff INH Q6H PRN Xarelto (Rivaroxaban) 20 Mg Tab 20 Mg PO DAILY Lisinopril 20 Mg Tab 20 Mg PO DAILY Escitalopram (Escitalopram Oxalate) 20 Mg Tab 30 Mg PO DAILY Divalproex ER (Divalproex Sodium) 500 Mg Tab 1,000 Mg PO BID Omeprazole 20 Mg Tab 20 Mg PO BID Allergy (Loratadine) 10 Mg Tab Review of Systems General / Constitutional: No: Fever, Chills HENT: Positive: Sore Throat Respiratory: Positive: Cough Physical Exam Narrative GENERAL: Obese male in no acute distress. SKIN: Warm and dry. HEAD: Atraumatic. Normocephalic. EYES: Pupils equal and round. No scleral icterus. No injection or drainage. ENT: No nasal bleeding or discharge. Mucous membranes pink and moist. The tonsils are hypertrophic but not edematous or erythematous or fluctuant. There is no exudate. There is no evidence of thrush. Uvula midline with no mass- effect. There is no stridor or drooling. NECK: Trachea midline. No JVD. No lymphadenopathy. CARDIOVASCULAR: Regular rate and rhythm. No murmur appreciated. RESPIRATORY: No accessory muscle use. Clear to auscultation. Breath sounds equal bilaterally. Data Data Last Documented VS Vital Signs Date Time Temp Pulse Resp B/P (MAP) Pulse Ox O2 Delivery O2 Flow Rate FiO2 10/12/17 13:09 97.7 84 18 131/69 (89) 97 MDM Medical Screen Exam Complete: Yes Emergency Medical Condition: No Narrative Course 42-year-old male here with a sore throat for 1 year. He was seen by microelectronics assembler Dr. Dominique 6 days ago and has a CT soft tissue neck pending but not yet performed. I see no emergent intervention that is necessary at this time. Ideally this patient would obtain his outpatient CT and then follow- up with his microelectronics assembler to discuss the results. A medical screening exam was performed: At the time of evaluation the presenting medical condition was determined not to be of an emergent nature. The patient was given the option of receiving additional care, but declined. Patient was given options for additional community resources from which to obtain care. The Patient Has Been advised to seek medical attention for their presenting complaint. The patient has been advised to return to the ER at any time if an emergent condition develops. Primary Impression: Encounter for medical screening examination Julio Cesar Nieves Oct 12, 2017 13:47
== END 2017-10-12 13:56 | disposition left against medical advice (07) ==
LOC: NEPK 12:44
DX: J02.9 Acute pharyngitis, unspecified (principal); F17.200 Nicotine dependence, unspecified, uncomplicated
CPT/HCPCS: 99281